=== PATIENT | female | born 1970 | race Caucasian/White ===

== ENCOUNTER 2020-01-03 20:35 | Emergency (ER) | payer OTHER ==
[~2020-01-03] VITALS: Ht 172.7 cm; Wt 78.0 kg
[2020-01-03 22:08] VITALS: BP 136/76
--- NOTE | 2020-01-03 22:19 | NUR ---
PT BIB DAUGHTER FOR C/O L HEEL PAIN X 2 DAYS. - FALL, - INJURY. - EDEMA. PT AAOX4, VSS, RR EVEN AND UNLABORED ONR A W/ NAD NOTED. PT CONNECTED TO THE MONITOR AND POX.
--- NOTE | 2020-01-03 22:56 | NUR ---
Patient discharged to home in stable condition. Written and verbal after care instructions given. Patient verbalizes understanding of instruction.
== END 2020-01-03 22:58 | disposition home or self-care (01) ==
LOC: ER 20:37
DX: M72.2 Plantar fascial fibromatosis (principal); F17.200 Nicotine dependence, unspecified, uncomplicated

== ENCOUNTER 2021-08-27 20:46 | Emergency (ER) | payer OTHER ==
[~2021-08-27] VITALS: Ht 172.7 cm; Wt 84.4 kg
--- NOTE | 2021-08-27 21:00 | NUR ---
PT BIBDAUGHTER WITH C/O L SIDED RIB PAIN RADIATING TO L SHOULDER BLADE SINCE 12PM WORST IN PAST 2HRS. PT ALERT AND ORIENTED X3. AMBULATORY WITH UNLABORED BREATHING.
--- NOTE | 2021-08-27 21:15 | NUR ---
LINE ESTABLISHED @ LEFT AC 18G. BLOOD COLLECTED AND SENT TO LAB.
[2021-08-27 21:33] LABS: CALCIUM, SERUM 8.9 mg/dL (8.5-10.1); CARBON DIOXIDE 27 mmol/L (21-32); CHLORIDE 106 mmol/L (98-107); CREATININE 0.8 mg/dL (0.6-1.3); GLUCOSE 114 mg/dL (74-106); POTASSIUM 3.6 mmol/L (3.5-5.1); SODIUM SERUM 141 mmol/L (136-145); UREA NITROGEN, BLOOD 11 mg/dL (7-18)
[2021-08-27] MEDS ORDERED: IOHEXOL-350 100 ML VIAL IV ONE (21:43)
[2021-08-27] MEDS ORDERED: IV NS 0.9% 250 ML IV ONE (21:43)
[2021-08-27 21:46] LABS: ALANINE AMINOTRANSFERASE 61 U/L (12-78); ALBUMIN 3.3 g/dL (3.4-5.0); ALKALINE PHOSPHATASE 142 U/L (46-116); ASPARTATE AMINOTRANSFERASE 23 U/L (15-37); BILIRUBIN,DIRECT 0.1 mg/dL (0.0-0.2); BILIRUBIN,TOTAL 0.2 mg/dL (0.2-1.0); TOTAL PROTEIN, SERUM 7.4 g/dL (6.4-8.2)
--- NOTE | 2021-08-27 21:47 | NUR ---
PT GOING TO CT
--- NOTE | 2021-08-27 22:44 | NUR ---
CALLED RADIOLOGY. CONFIRMED THAT ULTRASOUND HAD ALREADY BEEN PAGED.
--- NOTE | 2021-08-27 23:17 | NUR ---
US AT BEDSIDE
[2021-08-27] MEDS ORDERED: PIPERACILLIN /TAZOBACTAM 3.375 G in IV D5W 50 ML IV ONE (23:30)
[2021-08-27] MEDS ORDERED: KETOROLAC TROMETHAMINE INJ 30 MG/ML VIAL IV ONE (23:30)
[2021-08-27] MEDS ORDERED: ONDANSETRON HCL/PF 4 MG/2 ML VIAL IVP ONE (23:30)
[2021-08-27] MEDS ORDERED: IV NS 0.9% 1,000 ML BAG IV ONE (23:30)
[2021-08-27] MEDS ORDERED: KETOROLAC TROMETHAMINE 15 MG/ML VIAL ONE (23:35)
[2021-08-27] MEDS ORDERED: ONDANSETRON HCL/PF 4 MG/2 ML VIAL ONE (23:35)
[2021-08-27] MEDS ORDERED: PIPERACILLIN /TAZOBACTAM 3.375 G VIAL IV ONE (23:35)
--- NOTE | 2021-08-28 00:23 | NUR ---
Patient does not wish to proceed with medical care recommended by Dr. Mejias. Patient given information related to possible complications, up to and including , which could occur as a result of leaving the hospital at this time. Patient verbalizes understanding of risks involved due to leaving against medical advice. Patient has signed AMA form.
[2021-08-28 00:26] VITALS: BP 143/82
== END 2021-08-28 00:42 | disposition left against medical advice (07) ==
LOC: ER 20:58
DX: K81.9 Cholecystitis, unspecified (principal); R06.02 Shortness of breath; F17.200 Nicotine dependence, unspecified, uncomplicated; R07.89 Other chest pain; Z86.16 Personal history of COVID-19
CPT/HCPCS: 36415; 71045; 71275; 76705; 80048; 80076; 83880; 84484; 84702; 93005; 96365; 96375; 99285; J1885; J2405; J2543; J7030; J7050; Q9967; 85025-TC

== ENCOUNTER 2022-11-05 06:56 | Emergency (ER) | payer OTHER ==
[~2022-11-05] VITALS: Ht 172.7 cm; Wt 84.8 kg
[2022-11-05] MEDS ORDERED: IV LR 1000 ML 1,000 ML IV ONE (07:30)
--- NOTE | 2022-11-05 08:20 | NUR ---
IV LINE ESTABLISHED ON LAC #20, BLOOD DRAWN AND COLLECTED BY PHLEB AT BEDSIDE
--- NOTE | 2022-11-05 08:30 | NUR ---
UNABLE TO PROVIDE URINE NOR STOOL SAMPLE AT THIS [facility].
[2022-11-05 08:32] LABS: BASOPHILS % (AUTO) 0.4 % (0.0-2.0); EOSINOPHILS % (AUTO) 1.7 % (0.0-6.0); HEMATOCRIT 39 % (33-45); HEMOGLOBIN 12.8 g/dL (11.5-14.8); LYMPHOCYTES # (AUTO) 1.2 K/uL (0.8-4.8); MEAN CORPUSCULAR HGB CONC 32 g/dl (31.0-36.0); MEAN CORPUSCULAR VOLUME 79 fL (82-100); MONOCYTES # (AUTO) 0.6 K/uL (0.1-1.30); MONOCYTES % (AUTO) 7.7 % (2.0-12.0); NEUTROPHILS # (AUTO) 6.1 K/uL (1.8-8.9); NEUTROPHILS % (AUTO) 75.2 % (43.0-81.0); PLATELET COUNT (AUTO) 187 K/uL (150-450); WHITE BLOOD COUNT (AUTO) 8.1 K/uL (4.3-11.0)
[2022-11-05 08:52] LABS: ALBUMIN 2.8 g/dL (3.4-5.0); BILIRUBIN,DIRECT 0.2 mg/dL (0.0-0.2); BILIRUBIN,TOTAL 0.3 mg/dL (0.2-1.0); TOTAL PROTEIN, SERUM 6.8 g/dL (6.4-8.2)
--- NOTE | 2022-11-05 09:23 | NUR ---
URINE AND STOOL SAMPLE COLLECTED AND SENT TO LAB
[2022-11-05 10:31] LABS: BILIRUBIN,URINE 1+ (NEGATIVE); COLOR,URINE YELLOW (YELLOW); LEUKOCYTE ESTERASE ,URINE TRACE (NEGATIVE); NITRITE, URINE NEGATIVE (NEGATIVE); PROTEIN,URINE 1+ mg/dl (NEGATIVE); UGLUCOSE NEGATIVE (NEGATIVE); UROBILINOGEN,URINE 0.2 EU/dL (0.2)
[2022-11-05 10:35] LABS: BACTERIA,URINE Rare /HPF (None Seen); MUCUS,URINE Moderate /LPF (None Seen); RBC,URINE 0-2 /HPF (0-2); SQUAMOUS EPITHELIAL CELL,UR Moderate /HPF (None Seen)
[2022-11-05 12:01] LABS: CALCIUM, SERUM 8.4 mg/dL (8.5-10.1); CREATININE 0.8 mg/dL (0.6-1.3)
[2022-11-05 12:10] LABS: POTASSIUM 2.8 mmol/L (3.5-5.1)
--- NOTE | 2022-11-05 12:11 | NUR ---
POTASSIUM 2.8, DOC MADE AWARE
[2022-11-05] MEDS ORDERED: POTASSIUM CHLORIDE 20 MEQ TAB.PRT.SR PO ONE ×2 (12:30→12:55)
--- NOTE | 2022-11-05 13:24 | NUR ---
IV removed. Catheter intact and site benign. Pressure and 4x4 applied to site. No bleeding noted.Patient discharged to home in stable condition. Written and verbal after care instructions given. Patient verbalizes understanding of instruction.
[2022-11-05 13:25] VITALS: BP 110/71
== END 2022-11-05 13:25 | disposition home or self-care (01) ==
LOC: ER 06:59
DX: R19.7 Diarrhea, unspecified (principal); E87.6 Hypokalemia; R05.9 Cough, unspecified; Z20.822 Contact with and (suspected) exposure to COVID-19; F17.200 Nicotine dependence, unspecified, uncomplicated
CPT/HCPCS: 99284; 96360; 71045; 87426; 87045; 85025; 80048; 80076; 83735; 81001; 36415; 87177; 87209; J7120 ×2; C9803

== ENCOUNTER 2023-03-31 15:32 | Emergency (ER) | payer OTHER ==
[~2023-03-31] VITALS: Ht 170.2 cm; Wt 83.9 kg
--- NOTE | 2023-03-31 15:40 | NUR ---
BIBS FOR NASAL PAIN X 3d. A/O X 3, ABLE TO MAKE NEEDS KNOWN, TOLERATING WELL ON ROOM AIR.
[2023-03-31 15:50] VITALS: BP 131/69
[2023-03-31] MEDS ORDERED: CEPHALEXIN MONOHYDRATE 500 MG CAPSULE PO ONE ×2 (17:00→17:06)
[2023-03-31] MEDS ORDERED: IBUPROFEN 600 MG TABLET PO ONE (17:00)
[2023-03-31] MEDS ORDERED: CEPH500T PO (17:03)
[2023-03-31] MEDS ORDERED: IBUP-1955 PO (17:03)
[2023-03-31] MEDS ORDERED: IBUPROFEN 600 MG TABLET ONE (17:06)
--- NOTE | 2023-03-31 17:07 | NUR ---
PATIENT NEEDS TO GO AND DONT WANT TO WAIT FOR THE MEDICATION AND DISCHARGE PAPER. SHE SAID THAT SHE IS JUST GOING TO SHERIFF DEPUTY THE PRESCRIPTION IN HER PHARMACY. MADE AWARE .
== END 2023-03-31 17:09 | disposition home or self-care (01) ==
LOC: ER 15:35
DX: J34.89 Other specified disorders of nose and nasal sinuses (principal); F17.200 Nicotine dependence, unspecified, uncomplicated

== ENCOUNTER 2024-07-28 01:52 | Emergency (ER) | payer OTHER ==
[~2024-07-28] VITALS: Ht 172.7 cm; Wt 86.2 kg
[~2024-07-28 01:52] MED LIST: CEPH500T PO; IBUP-1955 PO
[2024-07-28 03:09] VITALS: BP 106/86; TEMP 98.3; O2SAT 96
--- NOTE | 2024-07-28 03:13 | NUR ---
PT BIB FAMILY, HIGH FEVER & BL FLANK PAIN, TYLENOL TAKEN AT HOME, AWAITING FURTHER ORDERS
--- NOTE | 2024-07-28 03:16 | NUR ---
URINE SAMPLE TAKEN, SENT TO LAB
[2024-07-28] MEDS ORDERED: IBUPROFEN 600 MG TABLET ONE (03:22)
[2024-07-28 03:45] LABS: BASOPHILS % (AUTO) 0.5 % (0.0-2.0); EOSINOPHILS % (AUTO) 0.2 % (0.0-6.0); HEMATOCRIT 42 % (33-45); HEMOGLOBIN 13.9 g/dL (11.5-14.8); LYMPHOCYTES # (AUTO) 1.3 K/uL (0.8-4.8); LYMPHOCYTES % (AUTO) 19.3 % (20.0-44.0); MEAN CORPUSCULAR HEMOGLOBIN 27 PG (26.0-33.0); MEAN CORPUSCULAR HGB CONC 33 g/dl (31.0-36.0); MEAN CORPUSCULAR VOLUME 81 fL (82-100); MONOCYTES # (AUTO) 0.7 K/uL (0.1-1.30); MONOCYTES % (AUTO) 10.4 % (2.0-12.0); NEUTROPHILS # (AUTO) 4.8 K/uL (1.8-8.9); NEUTROPHILS % (AUTO) 69.6 % (43.0-81.0); PLATELET COUNT (AUTO) 130 K/uL (150-450); RED BLOOD CELL COUNT(AUTO) 5.14 MIL/uL (4.0-5.2); WHITE BLOOD COUNT (AUTO) 6.9 K/uL (4.3-11.0)
[2024-07-28] MEDS: IV NS 0.9% 1,000 ML BAG IV ONE (03:54)
[2024-07-28] MEDS: IBUPROFEN 600 MG TABLET PO ONE (03:54)
--- NOTE | 2024-07-28 03:54 | NUR ---
URIID SWABBED, SENT TO LAB.
[2024-07-28 03:55] LABS: APPEARANCE,URINE SLIGHTLY CLOUDY (CLEAR); BILIRUBIN,URINE 2+ (NEGATIVE); BLOOD, URINE NEGATIVE Ery/uL (NEGATIVE); COLOR,URINE YELLOW (YELLOW); KETONES,URINE 1+ mg/dL (NEGATIVE); LEUKOCYTE ESTERASE ,URINE 1+ (NEGATIVE); NITRITE, URINE NEGATIVE (NEGATIVE); PROTEIN,URINE 1+ mg/dl (NEGATIVE); UGLUCOSE NEGATIVE (NEGATIVE)
[2024-07-28 03:57] LABS: CALCIUM, SERUM 9.4 mg/dL (8.5-10.1); CREATININE 0.9 mg/dL (0.6-1.3); POTASSIUM 3.5 mmol/L (3.5-5.1)
[2024-07-28] MEDS ORDERED: CEPH500T PO (04:32)
[2024-07-28] MEDS ORDERED: IBUP-1953 PO (04:32)
[2024-07-28 04:43] LABS: ADD URINE CULTURE YES; BACTERIA,URINE Few /HPF (None Seen); SQUAMOUS EPITHELIAL CELL,UR Rare /HPF (None Seen); WBC,URINE 21-50 /HPF (0-3)
--- NOTE | 2024-07-28 04:49 | NUR ---
Patient discharged to home in stable condition. Written and verbal after care instructions given. Patient verbalizes understanding of instruction. IV removed. Catheter intact and site benign. Pressure and 4x4 applied to site. No bleeding noted.
== END 2024-07-28 04:50 | disposition home or self-care (01) ==
LOC: ER 01:55
DX: U07.1 COVID-19 (principal); N39.0 Urinary tract infection, site not specified; M79.10 Myalgia, unspecified site; F17.200 Nicotine dependence, unspecified, uncomplicated; Z87.19 Personal history of other diseases of the digestive system
CPT/HCPCS: 99284; 96360; 71045; 87426; 87804 ×2; 85025; 80048; 87086; 81001; 36415; J7030